=== PATIENT | male | born 1995 | race Caucasian/White ===

== ENCOUNTER 2019-07-15 20:05 | Emergency (ER) | payer MEDICAID, OTHER ==
[2019-07-15] MEDS ORDERED: SILVER NITRATE APPLICATOR 1 EA BOX ONE (20:39)
[2019-07-15] MEDS ORDERED: LIDOCAINE HCL/MPF 1% 30 ML VIAL IJ ONE (20:47)
[2019-07-15] MEDS ORDERED: diphenhydrAMINE HCL 50 MG/ML VIAL ONE (20:57)
[2019-07-15] MEDS ORDERED: METOCLOPRAMIDE HCL 10 MG/2 ML VIAL ONE (20:57)
[2019-07-15] MEDS ORDERED: DEXAMETHASONE SOD PHOSPHATE 10 MG/ML VIAL ONE (20:57)
[2019-07-15] MEDS ORDERED: KETOROLAC TROMETHAMINE INJ 30 MG/ML VIAL ONE (20:57)
[2019-07-15] MEDS ORDERED: DEXAMETHASONE SOD PHOSPHATE 10 MG/ML VIAL IV ONE (21:00)
[2019-07-15] MEDS ORDERED: IV NS 0.9% 1,000 ML BAG IV ONE (21:00)
[2019-07-15] MEDS ORDERED: diphenhydrAMINE HCL 50 MG/ML VIAL IV ONE (21:00)
[2019-07-15] MEDS ORDERED: KETOROLAC TROMETHAMINE INJ 30 MG/ML VIAL IV ONE (21:00)
[2019-07-15] MEDS ORDERED: METOCLOPRAMIDE HCL 10 MG/2 ML VIAL IV ONE (21:00)
== END 2019-07-15 21:56 | disposition home or self-care (01) ==
DX: R51 Headache (principal); R07.89 Other chest pain
CPT/HCPCS: 36415; 71045; 80048; 85025; 93005; 96374; 96375; 99284; J1100; J1200; J1885; J2765; J7030

== ENCOUNTER 2019-12-16 17:32 | Emergency (ER) | payer MEDICAID ==
[~2019-12-16] VITALS: Ht 177.8 cm; Wt 86.2 kg
[2019-12-16 17:41] VITALS: BP 142/75
== END 2019-12-16 18:23 | disposition home or self-care (01) ==
LOC: ER 17:32
DX: J06.9 Acute upper respiratory infection, unspecified (principal)

== ENCOUNTER 2020-07-03 14:35 | Emergency (ER) | payer SELFPAY ==
[~2020-07-03] VITALS: Ht 175.3 cm; Wt 86.2 kg
--- NOTE | 2020-07-03 14:46 | NUR ---
PATIENT STATED "SHARP PAIN" IN HIS LOWER ABDOMEN X 3 DAYS, TO ER BED 10, HOOKED TO MONITOR, CHANGED TO HOSP GOWN, WARM BLANKET PROVIDEDD. AWAITING MD OLEA
--- NOTE | 2020-07-03 15:05 | NUR ---
DR DIXON AT BEDSIDE
[2020-07-03 15:23] LABS: BASOPHILS % (AUTO) 0.8 % (0.0-2.0); EOSINOPHILS % (AUTO) 2.5 % (0.0-6.0); HEMATOCRIT 42 % (39-51); HEMOGLOBIN 14.5 g/dL (13.5-17.5); LYMPHOCYTES # (AUTO) 0.8 /CMM (0.8-4.8); LYMPHOCYTES % (AUTO) 23.7 % (20.0-44.0); MEAN CORPUSCULAR HGB CONC 35 g/dl (31.0-36.0); MEAN CORPUSCULAR VOLUME 95 fL (80-96); MONOCYTES # (AUTO) 0.2 /CMM (0.1-1.30); MONOCYTES % (AUTO) 5.9 % (2.0-12.0); NEUTROPHILS # (AUTO) 2.3 /CMM (1.8-8.9); NEUTROPHILS % (AUTO) 67.1 % (43.0-81.0); PLATELET COUNT (AUTO) 151 /CMM (150-450); RED BLOOD CELL COUNT(AUTO) 4.42 MIL/uL (4.5-6.0); WHITE BLOOD COUNT (AUTO) 3.5 K/uL (4.3-11.0)
[2020-07-03] MEDS ORDERED: KETOROLAC TROMETHAMINE INJ 30 MG/ML VIAL IV ONE (15:30)
[2020-07-03] MEDS ORDERED: IV NS 0.9% 1,000 ML BAG IV ONE (15:30)
[2020-07-03] MEDS ORDERED: ONDANSETRON HCL/PF 4 MG/2 ML VIAL IVP ONE (15:30)
[2020-07-03 15:35] LABS: ALBUMIN 4.3 g/dL (3.4-5.0); BILIRUBIN,DIRECT 0.8 mg/dL (0.0-0.2); BILIRUBIN,TOTAL 1.4 mg/dL (0.2-1.0); CREATININE 0.8 mg/dL (0.6-1.3); POTASSIUM 3.4 mmol/L (3.5-5.1); TOTAL PROTEIN, SERUM 8.5 g/dL (6.4-8.2)
[2020-07-03 15:51] LABS: CALCIUM, SERUM 9.7 mg/dL (8.5-10.1)
[2020-07-03] MEDS ORDERED: KETOROLAC TROMETHAMINE 15 MG/ML VIAL ONE (15:59)
[2020-07-03] MEDS ORDERED: ONDANSETRON HCL/PF 4 MG/2 ML VIAL ONE (15:59)
[2020-07-03] MEDS ORDERED: IV NS 0.9% 250 ML IV ONE (16:08)
[2020-07-03] MEDS ORDERED: CT SWABBABLE VALVE TRANS SET 1 EA INFUS.SET MC ONE (16:08)
[2020-07-03] MEDS ORDERED: IOHEXOL-300 100 ML VIAL IV ONE (16:08)
--- NOTE | 2020-07-03 16:09 | NUR ---
WHEELED OUT VIA WHEELCHAIR FOR CT SCAN
--- NOTE | 2020-07-03 17:37 | NUR ---
Patient discharged to home in stable condition. Written and verbal after care instructions given. Patient verbalizes understanding of instruction.IV removed. Catheter intact and site benign. Pressure and 4x4 applied to site. No bleeding noted. Pt ambulatory with a steady gait
[2020-07-03 17:40] VITALS: BP 121/70
== END 2020-07-03 17:38 | disposition home or self-care (01) ==
LOC: ER 14:35
DX: R10.31 Right lower quadrant pain (principal); R10.32 Left lower quadrant pain; F17.200 Nicotine dependence, unspecified, uncomplicated
CPT/HCPCS: 36415; 74177; 80048; 80076; 83690; 85025; 96361; 96374; 96375; 99285; J1885; J2405; J7030; J7050; Q9967

== ENCOUNTER 2020-11-27 18:31 | Emergency (ER) | payer SELFPAY ==
[~2020-11-27] VITALS: Ht 177.8 cm; Wt 83.9 kg
[2020-11-27] MEDS ORDERED: LIDOCAINE 1% INJ 50 ML MDV IJ ONE (19:12)
[2020-11-27] MEDS ORDERED: LIDOCAINE 0.5%-EPI 1:200,000 50 ML VIAL ONE (19:14)
[2020-11-27] MEDS ORDERED: TDAP [DIPH/PERTUSSIS/TET] 0.5 ML VIAL IM ONE ×2 (19:39→20:00)
--- NOTE | 2020-11-27 19:45 | NUR ---
PREFAB L WRIST SPLINT APPIED BY LAURA ARELLANO
--- NOTE | 2020-11-27 19:46 | NUR ---
Patient discharged to home in stable condition. Written and verbal after care instructions given. Patient verbalizes understanding of instruction.
[2020-11-27 19:48] VITALS: BP 132/76
== END 2020-11-27 19:49 | disposition home or self-care (01) ==
LOC: ER 18:43
DX: S61.412A Laceration without foreign body of left hand, initial encounter (principal); W18.30XA Fall on same level, unspecified, initial encounter; Y93.89 Activity, other specified; Y92.89 Other specified places as the place of occurrence of the external cause; Y99.8 Other external cause status
CPT/HCPCS: 12002; 73130; 90471; 90715; 99283; A6403; J3490 ×2

== ENCOUNTER 2020-12-06 18:38 | Emergency (ER) | payer SELFPAY ==
[~2020-12-06] VITALS: Ht 177.8 cm; Wt 81.6 kg
[2020-12-06 18:53] VITALS: BP 138/90
== END 2020-12-06 19:14 | disposition home or self-care (01) ==
LOC: ER 18:47
DX: S61.412D Laceration without foreign body of left hand, subsequent encounter (principal); X58.XXXD Exposure to other specified factors, subsequent encounter

== ENCOUNTER 2021-02-23 21:49 | Emergency (ER) | payer SELFPAY ==
[~2021-02-23] VITALS: Ht 180.3 cm; Wt 88.5 kg
[2021-02-23 21:55] VITALS: BP 141/76
--- NOTE | 2021-02-23 22:03 | NUR ---
CHRISTINE MARION AT BEDSIDE TO EMMIE GOODRICH.
--- NOTE | 2021-02-23 22:19 | NUR ---
Patient does not wish to proceed with medical care recommended by (Allie). Patient given information related to possible complications, up to and including , which could occur as a result of leaving the hospital at this time. Patient verbalizes understanding of risks involved due to leaving against medical advice. Patient has signed AMA form. Pt aaox4 no acute distress noted, resp even and unlabored. Pt. verbalize understanding of all risks explained.
[2021-02-24] MEDS ORDERED: IBUP-1955 PO (19:20)
== END 2021-02-23 22:21 | disposition left against medical advice (07) ==
LOC: ER 21:51
DX: S40.021A Contusion of right upper arm, initial encounter (principal); F10.10 Alcohol abuse, uncomplicated; F17.200 Nicotine dependence, unspecified, uncomplicated; Y90.9 Presence of alcohol in blood, level not specified; W18.39XA Other fall on same level, initial encounter; Y93.89 Activity, other specified; Y92.89 Other specified places as the place of occurrence of the external cause; Y99.8 Other external cause status

== ENCOUNTER 2021-02-24 16:12 | Emergency (ER) | payer SELFPAY ==
[~2021-02-24] VITALS: Ht 175.3 cm; Wt 79.4 kg
--- NOTE | 2021-02-24 17:00 | NUR ---
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 on room air, breathing evenly and unlaborted. Kept comfortable, will continue to monitor accordingly.
[2021-02-24 17:42] LABS: BASOPHILS % (AUTO) 0.5 % (0.0-2.0); EOSINOPHILS % (AUTO) 0.9 % (0.0-6.0); HEMATOCRIT 39 % (39-51); HEMOGLOBIN 13.8 g/dL (13.5-17.5); LYMPHOCYTES # (AUTO) 0.5 /CMM (0.8-4.8); LYMPHOCYTES % (AUTO) 14.1 % (20.0-44.0); MEAN CORPUSCULAR HGB CONC 35 g/dl (31.0-36.0); MEAN CORPUSCULAR VOLUME 93 fL (80-96); MONOCYTES # (AUTO) 0.4 /CMM (0.1-1.30); MONOCYTES % (AUTO) 10.4 % (2.0-12.0); NEUTROPHILS # (AUTO) 2.7 /CMM (1.8-8.9); NEUTROPHILS % (AUTO) 74.1 % (43.0-81.0); PLATELET COUNT (AUTO) 130 /CMM (150-450); RED BLOOD CELL COUNT(AUTO) 4.23 MIL/uL (4.5-6.0); WHITE BLOOD COUNT (AUTO) 3.6 K/uL (4.3-11.0)
[2021-02-24 17:52] LABS: CALCIUM, SERUM 9.5 mg/dL (8.5-10.1); CREATININE 0.6 mg/dL (0.6-1.3); POTASSIUM 3.4 mmol/L (3.5-5.1)
[2021-02-24] MEDS ORDERED: CT SWABBABLE VALVE TRANS SET 1 EA INFUS.SET MC ONE (18:08)
[2021-02-24] MEDS ORDERED: IV NS 0.9% 250 ML IV ONE (18:08)
[2021-02-24] MEDS ORDERED: IOHEXOL-350 100 ML VIAL IV ONE (18:08)
[2021-02-24] MEDS ORDERED: POTASSIUM CHLORIDE 20 MEQ TAB.PRT.SR PO ONE ×2 (19:00→19:22)
[2021-02-24] MEDS ORDERED: IBUP-1955 PO (19:20)
[2021-02-24 19:29] VITALS: BP 134/84
--- NOTE | 2021-02-24 19:29 | NUR ---
Patient discharged to home in stable condition. Written and verbal after care instructions given. Patient verbalizes understanding of instruction.IV removed. Catheter intact and site benign. Pressure and 4x4 applied to site. No bleeding noted.
== END 2021-02-24 19:29 | disposition home or self-care (01) ==
LOC: ER 16:15
DX: S50.11XA Contusion of right forearm, initial encounter (principal); E87.6 Hypokalemia; R73.9 Hyperglycemia, unspecified; D72.819 Decreased white blood cell count, unspecified; F17.200 Nicotine dependence, unspecified, uncomplicated; W18.39XA Other fall on same level, initial encounter; Y93.89 Activity, other specified; Y92.89 Other specified places as the place of occurrence of the external cause; Y99.8 Other external cause status
CPT/HCPCS: 36415; 73206; 80048; 85025; 99284; J7050; Q9967

== ENCOUNTER 2022-04-23 11:50 | Emergency (ER) | payer OTHER ==
[~2022-04-23] VITALS: Ht 177.8 cm; Wt 95.3 kg
[~2022-04-23 11:50] MED LIST: IBUP-1955 PO
--- NOTE | 2022-04-23 12:05 | NUR ---
Been having numbness on legs >Right side xcouple weeks. Feels like it may fold when walking. Placed comfortably in bed. Vitals signs checked.
--- NOTE | 2022-04-23 12:10 | NUR ---
PATIENT PUSHED TO CT DEPT
[2022-04-23 13:06] VITALS: BP 127/69
--- NOTE | 2022-04-23 13:06 | NUR ---
Patient discharged to home in stable condition. Written and verbal after care instructions given. Patient verbalizes understanding of instruction.
== END 2022-04-23 13:07 | disposition home or self-care (01) ==
LOC: ER 11:55
DX: G62.9 Polyneuropathy, unspecified (principal); F17.200 Nicotine dependence, unspecified, uncomplicated
CPT/HCPCS: 70450-TC; 72131-TC

== ENCOUNTER 2022-07-11 17:52 | Emergency (ER) | payer OTHER ==
--- NOTE | 2022-07-11 18:06 | NUR ---
CALLED IN ED WAITING ROOM. NO RESPONSE.
--- NOTE | 2022-07-11 18:30 | NUR ---
CALLED IN ED WAITING ROOM. NO RESPONSE
--- NOTE | 2022-07-11 18:45 | NUR ---
PT LEFT WITHOUT BEING SEEN
== END 2022-07-11 18:46 | disposition left against medical advice (07) ==
LOC: ER 17:59
DX: Z53.21 Procedure and treatment not carried out due to patient leaving prior to being seen by health care provider (principal)